=== PATIENT | male | born 1990 ===

== ENCOUNTER 2022-02-18 07:31 | Observation (INO) ==
[2022-02-18] MEDS ORDERED: 0.9 % Sodium Chloride 1,000 ML IVC ONE (07:51)
[2022-02-18] MEDS ORDERED: Ondansetron 4 MG/2 ML VIAL IVP ONE (07:52)
[2022-02-18 08:31] LABS: Basophils # 0.1 K/mcL (0.0-0.2); Basophils % 0.6 %; Eosinophils % 0.1 %; Hematocrit 48.7 % (37.5-50.1); Hemoglobin 16.9 g/dL (12.9-16.9); Immature Granulocytes % 1.2 % (0-4); Lymphocytes # 1.2 K/mcL (0.6-4.6); Lymphocytes % 14.8 %; Mean Corpuscular HGB Conc 34.7 g/dL (31.6-35.5); Mean Corpuscular Hemoglobin 31.2 pg (28.0-33.3); Mean Corpuscular Volume 89.9 fL (83.0-100.0); Mean Platelet Volume 9.5 fL (9.4-12.4); Monocytes # 0.6 K/mcL (0.0-1.3); Monocytes % 6.6 %; Neutrophils # 6.4 K/mcL (1.6-8.9); Platelet Count 291 K/mcL (140-400); Red Blood Count 5.42 M/mcL (4.19-5.50); Red Cell Distribution Width 12.9 % (11.5-14.5); Segmented Neutrophils % 76.7 %; White Blood Count 8.4 K/mcL (4.3-11.1)
[2022-02-18 08:41] LABS: VBG HCO3 8 mEq/L (21-27); VBG PCO2 24 mmHg (41-51); VBG PH 7.12 pH Units (7.32-7.42); VBG PO2 37 mmHg (25-50)
[2022-02-18 08:59] LABS: Alanine Aminotransferase 15 Units/L (7-52); Albumin 4.7 g/dL (3.5-5.7); Albumin/Globulin Ratio 1.5 (1.1-2.2); Alkaline Phosphatase 78 Units/L (34-104); Aspartate Amino Transferase 11 Units/L (13-39); BUN/Creatinine Ratio 13 (6-26); Bilirubin,Direct 0.1 mg/dL (0.0-0.2); Bilirubin,Indirect 0.7 mg/dL (0.0-1.0); Bilirubin,Total 0.8 mg/dL (0.3-1.0); Blood Urea Nitrogen 11 mg/dL (6-20); Calcium 8.6 mg/dL (8.6-10.3); Carbon Dioxide 7 mEq/L (23-29); Chloride 105 mEq/L (98-107); Globulin 3.2 g/dL (2.4-3.5); Glucose 202 mg/dL (70-105); Lipase 85 Units/L (11-82); Magnesium 2.2 mg/dL (1.6-2.6); Osmolality,Calculated 287 (280-300); Potassium 3.7 mEq/L (3.5-5.1); Sodium 136 mEq/L (136-145); Total Protein 7.9 g/dL (6.4-8.9)
[2022-02-18 09:03] LABS: Troponin I < 0.03 ng/mL (< 0.04)
[2022-02-18 09:41] LABS: Influenza A PCR Negative (Negative); Influenza B PCR Negative (Negative); Resp. Syncytial Virus PCR Negative (Negative); SARS-CoV-2 by PCR (In House) Negative (Negative)
[2022-02-18] MEDS ORDERED: Ringers Solution, Lactated 1,000 ML IVC ONE ×3 (10:41→13:11)
[2022-02-18] MEDS ORDERED: *HR* Dextrose 50 % in Water (Syg) 50 ML SYRINGE IVP PRN ×2 (10:56→17:03)
[2022-02-18] MEDS ORDERED: D5% in 0.45% NACL 1,000 ML IVC PRN (10:56)
[2022-02-18] MEDS ORDERED: Ondansetron 4 MG/2 ML VIAL IVP PRN (11:03)
[2022-02-18] MEDS: D5% in 0.45% NACL w KCl 20 MEQ/1,000 ML MLS IVC PRN ×3 (11:33→19:43)
[2022-02-18] MEDS: D5% in Lactated Ringers 1,000 ML IVC SCH (11:48)
[2022-02-18 12:07] LABS: Estimated Average Glucose 312 mg/dl; Hemoglobin A1C 12.5 %
[2022-02-18 12:54] LABS: BUN/Creatinine Ratio 13 (6-26); Blood Urea Nitrogen 9 mg/dL (6-20); Carbon Dioxide 7 mEq/L (23-29); Chloride 110 mEq/L (98-107); Glucose 147 mg/dL (70-105); Osmolality,Calculated 285 (280-300); Potassium 3.2 mEq/L (3.5-5.1); Sodium 137 mEq/L (136-145)
[2022-02-18] MEDS: 0.9 % Sodium Chloride 1,000 ML IVC SCH ×2 (13:05→13:12)
[2022-02-18] MEDS: 0.45 % Sodium Chloride w/KCl 20 MEQ/1,000 ML MLS IVC SCH ×5 (13:25→21:35)
[2022-02-18 14:58] LABS: Bilirubin,Urine Negative (Negative); Blood,Urine Small (Negative); Clarity,Urine Clear (Clear); Color,Urine Colorless (Yellow); Glucose,Urine (UA) >=1000 mg/dL (Normal); Hyaline Casts,Urine Few per lpf (None Seen); Ketones,Urine >150 mg/dL (Negative); Leukocyte Esterase,Urine Negative (Negative); Mucus,Urine Few per lpf (None-Few); Nitrite,Urine Negative (Negative); PH,Urine 5.5 pH Units (5.0-8.0); Protein,Urine 50 mg/dL (Neg-Trace); RBC,Urine 0-3 per hpf (0-3); Specific Gravity,Urine 1.018 (1.010-1.025); Urobilinogen,Urine Normal (Normal); WBC,Urine 0-3 per hpf (0-3)
[2022-02-18 17:04] LABS: BUN/Creatinine Ratio 12 (6-26); Blood Urea Nitrogen 7 mg/dL (6-20); Calcium 7.9 mg/dL (8.6-10.3); Carbon Dioxide 10 mEq/L (23-29); Chloride 113 mEq/L (98-107); Glucose 97 mg/dL (70-105); Osmolality,Calculated 278 (280-300); Potassium 2.7 mEq/L (3.5-5.1); Sodium 135 mEq/L (136-145)
[2022-02-18 21:17] LABS: BUN/Creatinine Ratio 11 (6-26); Blood Urea Nitrogen 6 mg/dL (6-20); Calcium 7.8 mg/dL (8.6-10.3); Carbon Dioxide 13 mEq/L (23-29); Chloride 111 mEq/L (98-107); Glucose 159 mg/dL (70-105); Osmolality,Calculated 279 (280-300); Potassium 2.8 mEq/L (3.5-5.1); Sodium 134 mEq/L (136-145)
[2022-02-19] MEDS: D5% in 0.45% NACL w KCl 20 MEQ/1,000 ML MLS IVC PRN ×2 (00:26→08:04)
[2022-02-19 01:40] LABS: VBG HCO3 15 mEq/L (21-27); VBG PCO2 28 mmHg (41-51); VBG PH 7.32 pH Units (7.32-7.42); VBG PO2 181 mmHg (25-50)
[2022-02-19 01:52] LABS: BUN/Creatinine Ratio 10 (6-26); Blood Urea Nitrogen 5 mg/dL (6-20); Calcium 7.8 mg/dL (8.6-10.3); Carbon Dioxide 14 mEq/L (23-29); Chloride 111 mEq/L (98-107); Glucose 140 mg/dL (70-105); Osmolality,Calculated 278 (280-300); Potassium 2.5 mEq/L (3.5-5.1); Sodium 134 mEq/L (136-145)
[2022-02-19] MEDS ORDERED: Potassium Chloride Elixir 20 MEQ/15 ML UDC PO ONE (02:56)
[2022-02-19] MEDS: D5% in Lactated Ringers 1,000 ML IVC SCH ×2 (03:50→06:12)
[2022-02-19] MEDS: 0.45 % Sodium Chloride w/KCl 20 MEQ/1,000 ML MLS IVC SCH ×3 (03:51→08:09)
[2022-02-19 05:43] LABS: BUN/Creatinine Ratio 10 (6-26); Blood Urea Nitrogen 5 mg/dL (6-20); Calcium 7.8 mg/dL (8.6-10.3); Carbon Dioxide 16 mEq/L (23-29); Chloride 111 mEq/L (98-107); Glucose 133 mg/dL (70-105); Osmolality,Calculated 279 (280-300); Potassium 3.2 mEq/L (3.5-5.1); Sodium 135 mEq/L (136-145)
[2022-02-19 06:58] LABS: VBG HCO3 17 mEq/L (21-27); VBG PCO2 34 mmHg (41-51); VBG PO2 87 mmHg (25-50)
[2022-02-19 06:58] LABS: VBG HCO3 16 mEq/L (21-27); VBG PCO2 34 mmHg (41-51); VBG PH 7.29 pH Units (7.32-7.42); VBG PO2 91 mmHg (25-50)
[2022-02-19] MEDS: Pantoprazole 40 MG VIAL IVP SCH (08:05)
[2022-02-19] MEDS ORDERED: *HR* Dextrose 50 % in Water (Syg) 50 ML SYRINGE IVP PRN (08:10)
[2022-02-19] MEDS ORDERED: D5% in Water 1,000 ML IVC PRN (08:10)
[2022-02-19] MEDS ORDERED: Dextrose Gel 15 GM/37.5 ML TUBE PO PRN ×2 (08:10)
[2022-02-19] MEDS ORDERED: Insulin DETEMIR 100 UNIT/ML X5UNITS SUBQ SCH (08:11)
[2022-02-19] MEDS: Insulin DETEMIR 100 UNIT/ML X5UNITS SUBQ SCH (08:38)
[2022-02-19 08:47] LABS: ABG PCO2 < 13 mmHg (35-45); ABG PH 7.23 pH Units (7.32-7.45); ABG PO2 135 mmHg (85-104)
[2022-02-19 09:09] LABS: VBG HCO3 17 mEq/L (21-27); VBG PCO2 34 mmHg (41-51); VBG PH 7.32 pH Units (7.32-7.42); VBG PO2 57 mmHg (25-50)
[2022-02-19 09:27] LABS: BUN/Creatinine Ratio 8 (6-26); Blood Urea Nitrogen 4 mg/dL (6-20); Calcium 7.9 mg/dL (8.6-10.3); Carbon Dioxide 18 mEq/L (23-29); Chloride 110 mEq/L (98-107); Glucose 164 mg/dL (70-105); Osmolality,Calculated 279 (280-300); Potassium 2.8 mEq/L (3.5-5.1); Sodium 134 mEq/L (136-145)
[2022-02-19] MEDS: Insulin LISPRO 300 UNITS/3 ML VIAL SUBQ SCH ×2 (12:01→16:04)
[2022-02-19 15:19] LABS: BUN/Creatinine Ratio 11 (6-26); Blood Urea Nitrogen 7 mg/dL (6-20); Calcium 7.9 mg/dL (8.6-10.3); Carbon Dioxide 20 mEq/L (23-29); Chloride 106 mEq/L (98-107); Glucose 268 mg/dL (70-105); Osmolality,Calculated 281 (280-300); Sodium 132 mEq/L (136-145)
[2022-02-19] MEDS ORDERED: Insulin LISPRO 300 UNITS/3 ML VIAL SUBQ SCH (21:00)
[2022-02-20 02:24] LABS: BUN/Creatinine Ratio 11 (6-26); Blood Urea Nitrogen 6 mg/dL (6-20); Calcium 8.2 mg/dL (8.6-10.3); Carbon Dioxide 24 mEq/L (23-29); Chloride 109 mEq/L (98-107); Glucose 219 mg/dL (70-105); Osmolality,Calculated 292 (280-300); Sodium 139 mEq/L (136-145)
[2022-02-20 02:57] LABS: Basophils % 0.8 %; Eosinophils # 0.1 K/mcL (0.0-0.6); Eosinophils % 2.1 %; Hematocrit 36.7 % (37.5-50.1); Immature Granulocytes % 0.6 % (0-4); Lymphocytes # 2.6 K/mcL (0.6-4.6); Mean Corpuscular HGB Conc 36.5 g/dL (31.6-35.5); Mean Corpuscular Hemoglobin 30.9 pg (28.0-33.3); Mean Corpuscular Volume 84.6 fL (83.0-100.0); Mean Platelet Volume 9.7 fL (9.4-12.4); Monocytes # 0.6 K/mcL (0.0-1.3); Monocytes % 10.9 %; Neutrophils # 1.9 K/mcL (1.6-8.9); Platelet Count 233 K/mcL (140-400); Red Blood Count 4.34 M/mcL (4.19-5.50); Red Cell Distribution Width 12.4 % (11.5-14.5); Segmented Neutrophils % 35.6 %; White Blood Count 5.2 K/mcL (4.3-11.1)
[2022-02-20 03:08] LABS: Hemoglobin 13.4 g/dL (12.9-16.9)
[2022-02-20] MEDS: Insulin LISPRO 300 UNITS/3 ML VIAL SUBQ SCH ×2 (09:30→12:42)
[2022-02-20] MEDS: Pantoprazole 40 MG VIAL IVP SCH (10:03)
[2022-02-20] MEDS: Insulin DETEMIR 100 UNIT/ML X5UNITS SUBQ SCH (10:03)
[2022-02-20 12:00] VITALS: BP 110/77; PULSE 75; TEMP 98.6; O2SAT 100
[2022-02-20 21:50] LABS: Amphetamines NEGATIVE ng/mL (Cutoff 20); Barbiturates NEGATIVE ng/mL (Cutoff 50); Benzodiazepines NEGATIVE ng/mL (Cutoff 50); Buprenorphine NEGATIVE ng/mL (Cutoff 1); Cocaine NEGATIVE ng/mL (Cutoff 20); Methadone NEGATIVE ng/mL (Cutoff 25); Methamphetamines NEGATIVE ng/mL (Cutoff 20); Opiates NEGATIVE ng/mL (Cutoff 20); Phencyclidine NEGATIVE ng/mL (Cutoff 10)
== END 2022-02-20 15:00 | disposition home or self-care (01) ==
LOC: EMEROOARM 07:31 → 2NNU 07:31 → SUATTDRO 11:41 → 2NNU 12:35 → 2ANU 02-19 17:53
PROVIDERS: ADMIT Internal Medicine; ATTEND Registered Nurse